=== PATIENT | female | born 1955 | race Caucasian/White ===

== ENCOUNTER → 2019-03-28 10:48 | Outpatient (BNVA) | payer MEDICARE, MEDICAID, SELFPAY | PROVIDERS: Family Provider Family Medicine; PCP Family Medicine; Visit Provider Nurse Practitioner | DX: M54.9 Dorsalgia, unspecified (principal); M96.1 Postlaminectomy syndrome, not elsewhere classified; Z79.891 Long term (current) use of opiate analgesic | CPT/HCPCS: 99213 ==

== ENCOUNTER → 2019-05-23 13:09 | Outpatient (BNVA) | payer MEDICARE, MEDICAID, SELFPAY | PROVIDERS: Family Provider Family Medicine; PCP Family Medicine; Visit Provider Nurse Practitioner | DX: M54.5 Low back pain (principal); M96.1 Postlaminectomy syndrome, not elsewhere classified; Z79.891 Long term (current) use of opiate analgesic | CPT/HCPCS: 99213 ==

== ENCOUNTER → 2019-09-12 10:17 | Outpatient (BNVA) | payer MEDICARE, MEDICAID, SELFPAY | PROVIDERS: Family Provider Family Medicine; PCP Family Medicine; Visit Provider Nurse Practitioner | DX: G89.29 Other chronic pain (principal); M54.5 Low back pain; Z79.891 Long term (current) use of opiate analgesic | CPT/HCPCS: 99213 ==

== ENCOUNTER → 2019-11-13 10:27 | Outpatient (BNVA) | payer MEDICARE, MEDICAID, SELFPAY | PROVIDERS: Family Provider Family Medicine; PCP Family Medicine; Visit Provider Nurse Practitioner | DX: M54.5 Low back pain (principal); M96.1 Postlaminectomy syndrome, not elsewhere classified; M47.9 Spondylosis, unspecified; Z79.891 Long term (current) use of opiate analgesic | CPT/HCPCS: 99213 ==

== ENCOUNTER → 2020-01-16 12:18 | Outpatient (BNVA) | payer MEDICARE, SELFPAY | PROVIDERS: Family Provider Family Medicine; PCP Family Medicine; Visit Provider Anesthesiology | DX: G89.29 Other chronic pain (principal); M54.5 Low back pain; M96.1 Postlaminectomy syndrome, not elsewhere classified; M47.9 Spondylosis, unspecified; Z79.891 Long term (current) use of opiate analgesic | CPT/HCPCS: 99212; 99214 ==

== ENCOUNTER → 2020-03-18 12:51 | Outpatient (BNVA) | payer MEDICARE, MEDICAID, SELFPAY | PROVIDERS: Family Provider Family Medicine; PCP Family Medicine; Visit Provider Nurse Practitioner | DX: G89.29 Other chronic pain (principal); M54.5 Low back pain; M47.9 Spondylosis, unspecified; M96.1 Postlaminectomy syndrome, not elsewhere classified; Z79.891 Long term (current) use of opiate analgesic | CPT/HCPCS: 99214 ==

== ENCOUNTER → 2020-05-13 12:56 | Outpatient (BNVA) | payer MEDICARE, MEDICAID, SELFPAY | PROVIDERS: Family Provider Family Medicine; PCP Family Medicine; Visit Provider Anesthesiology | DX: G89.29 Other chronic pain (principal); M54.5 Low back pain; M96.1 Postlaminectomy syndrome, not elsewhere classified; M47.9 Spondylosis, unspecified; Z79.891 Long term (current) use of opiate analgesic | CPT/HCPCS: 99213 ==

== ENCOUNTER → 2020-07-16 09:53 | Outpatient (BNVA) | payer MEDICARE, SELFPAY | PROVIDERS: Family Provider Family Medicine; PCP Family Medicine; Visit Provider Nurse Practitioner | DX: G89.29 Other chronic pain (principal); M50.90 Cervical disc disorder, unspecified, unspecified cervical region; M54.5 Low back pain; M47.9 Spondylosis, unspecified; M96.1 Postlaminectomy syndrome, not elsewhere classified; Z98.890 Other specified postprocedural states; Z79.891 Long term (current) use of opiate analgesic | CPT/HCPCS: 99215 ==

== ENCOUNTER 2020-07-28 15:37 | Outpatient (CLI) | payer MEDICARE, MEDICAID, SELFPAY ==
--- NOTE | 2020-07-28 16:00 | MR_ITS ---
WS: [id number] MRI CERVICAL SPINE NONCONTRAST HISTORY: M50.90 - Cervical disc disorder, COMPARISON: None available. Technique: Multiplanar, multisequence noncontrast imaging of the cervical spine. Mild increase in the cervical lordosis and RIGHT curvature. There is a fusion at C6-7 between the neri tebral bodies. Small amount of marrow edema in the endplates of C2, C3 and C4. No acute fractures. Signal within the cervical cord is normal. Visualized posterior fossa is unremarkable. Small amount of increased signal in the fabiana from microvascular ischemic disease. C2-C3: Diffuse osteophytic ridging and annular disc bulge. Mild bilateral foraminal stenosis. C3-C4: Diffuse annular disc bulging and osteophytic ridging. RIGHT paracentral disc protrusion contac ting the ventral thecal sac and the proximal nerve roots. There is mild central with moderate RIGHT a nd mild LEFT foraminal stenosis. C4-C5: Diffuse annular disc bulging with osteophytic ridging. Mild bilateral facet arthritis. Mild ce ntral and moderate bilateral foraminal stenosis. C5-C6: Mild annular disc bulging with facet hypertrophy. Moderate central with severe bilateral rosanna inal stenosis. C6-C7: Diffuse osteophytic ridging at the disc space. Moderate bilateral foraminal stenosis. C7-T1: Bilateral disc osteophyte complexes and the foramina. Moderate stenosis. Paraspinal soft tissue are normal. MR/MR cervical spin wo con* [id number] IMPRESSION: 1. Quality of this examination is limited by motion and positioning. 2. Increase in cervical lordosis and prior fusion at C6-7. 3. Moderate central with severe bilateral foraminal stenosis at C5-6. 4. Moderate bilateral foraminal stenosis at C6-7 and C7-T1. 5. Moderate size RIGHT paracentral disc protrusion at C3-4 contacting the thec al sac and resulting in moderate RIGHT foraminal stenosis.
== END 2020-07-28 15:38 | disposition home or self-care (01) ==
PROVIDERS: Family Provider Family Medicine; PCP Family Medicine; Visit Provider Nurse Practitioner
DX: M50.90 Cervical disc disorder, unspecified, unspecified cervical region (principal); M50.21 Other cervical disc displacement, high cervical region; M48.02 Spinal stenosis, cervical region; M48.03 Spinal stenosis, cervicothoracic region
CPT/HCPCS: 72141

== ENCOUNTER → 2020-09-15 12:34 | Outpatient (BNVA) | payer MEDICARE, MEDICAID, SELFPAY | PROVIDERS: Family Provider Family Medicine; PCP Family Medicine; Visit Provider Nurse Practitioner | DX: G89.29 Other chronic pain (principal); M54.5 Low back pain; M47.9 Spondylosis, unspecified; M96.1 Postlaminectomy syndrome, not elsewhere classified; C50.919 Malignant neoplasm of unspecified site of unspecified female breast; C77.3 Secondary and unspecified malignant neoplasm of axilla and upper limb lymph nodes; Z79.891 Long term (current) use of opiate analgesic; Z90.10 Acquired absence of unspecified breast and nipple | CPT/HCPCS: 99215 ==

== ENCOUNTER → 2020-10-13 12:52 | Outpatient (BNVA) | payer MEDICARE, MEDICAID, SELFPAY | PROVIDERS: Family Provider Family Medicine; PCP Family Medicine; Visit Provider Nurse Practitioner | DX: G89.29 Other chronic pain (principal); M54.5 Low back pain; M96.1 Postlaminectomy syndrome, not elsewhere classified; M47.9 Spondylosis, unspecified; C50.919 Malignant neoplasm of unspecified site of unspecified female breast; C77.3 Secondary and unspecified malignant neoplasm of axilla and upper limb lymph nodes; Z79.891 Long term (current) use of opiate analgesic | CPT/HCPCS: 99214 ==

== ENCOUNTER → 2020-12-08 12:49 | Outpatient (BNVA) | payer MEDICARE, MEDICAID, SELFPAY | PROVIDERS: Family Provider Family Medicine; PCP Family Medicine; Visit Provider Nurse Practitioner | DX: G89.29 Other chronic pain (principal); M96.1 Postlaminectomy syndrome, not elsewhere classified; M54.40 Lumbago with sciatica, unspecified side; M47.9 Spondylosis, unspecified; C50.919 Malignant neoplasm of unspecified site of unspecified female breast; C77.3 Secondary and unspecified malignant neoplasm of axilla and upper limb lymph nodes; Z79.891 Long term (current) use of opiate analgesic | CPT/HCPCS: 99213 ==

== ENCOUNTER → 2021-01-25 10:11 | Outpatient (BNVA) | payer MEDICARE, MEDICAID, SELFPAY | PROVIDERS: Family Provider Family Medicine; PCP Family Medicine; Visit Provider Anesthesiology | DX: G89.29 Other chronic pain (principal); M54.50 Low back pain, unspecified; M96.1 Postlaminectomy syndrome, not elsewhere classified; M47.9 Spondylosis, unspecified; Z79.891 Long term (current) use of opiate analgesic | CPT/HCPCS: 99213 ==

== ENCOUNTER → 2021-03-30 10:28 | Outpatient (BNVA) | payer MEDICARE, MEDICAID, SELFPAY | PROVIDERS: Family Provider Family Medicine; PCP Family Medicine; Visit Provider Anesthesiology | DX: G89.29 Other chronic pain (principal); M54.50 Low back pain, unspecified; M96.1 Postlaminectomy syndrome, not elsewhere classified; M47.9 Spondylosis, unspecified; Z79.891 Long term (current) use of opiate analgesic; Z87.891 Personal history of nicotine dependence | CPT/HCPCS: 99213 ==